=== PATIENT | female | born 1980 | race Caucasian/White ===

== ENCOUNTER 2016-11-29 20:17 | Emergency (ER) | payer OTHER ==
[2016-11-29 20:40] VITALS: RESP 22; TEMP 97.8
[2016-11-29] MEDS ORDERED: SODIUM CHLORIDE 0.9% 1000ML 1,000 ML IV ONE (20:45)
[2016-11-29] MEDS: ONDANSETRON HCL 4 MG/2 ML 4 MG in SODIUM CHLORIDE 0.9% 100 ML 100 ML IV ONE ×2 (20:45→20:50)
[2016-11-29] MEDS ORDERED: KETOROLAC TROMETHAMINE 30 MG/ML SOL IV ONE (20:45)
[2016-11-29] MEDS ORDERED: ONDANSETRON HCL 4 MG/2 ML SOL IV ONE (20:50)
[2016-11-29] MEDS ORDERED: ONDANSETRON HCL 4 MG/2 ML SOL ONE (20:52)
[2016-11-29] MEDS ORDERED: KETOROLAC TROMETHAMINE 30 MG/ML SOL ONE (20:52)
[2016-11-29] MEDS ORDERED: PROMETHAZINE HYDROCHLORIDE 25 MG/ML SOL IV ONE (22:04)
[2016-11-29] MEDS ORDERED: PROCHLORPERAZINE EDISYLATE 5 MG/ML SOL IV ONE (22:04)
[2016-11-29] MEDS ORDERED: PROCHLORPERAZINE EDISYLATE 5 MG/ML SOL ONE (22:14)
[2016-11-29] MEDS ORDERED: PROMETHAZINE HYDROCHLORIDE 25 MG/ML SOL ONE (22:15)
[2016-11-29] MEDS ORDERED: SODIUM CHLORIDE 0.9% FLUSH 10 ML SOL IV PRN (22:21)
[2016-11-29 22:38] VITALS: BP 119/83; PULSE 78; O2SAT 97
== END 2016-11-29 22:34 | disposition home or self-care (01) | DRG 103 ==
LOC: ED 20:17
DX: R51 Headache (principal)
CPT/HCPCS: 96365; 96374; 96375; 99284; J0780; J1885; J2405; J2550

== ENCOUNTER 2018-11-04 18:18 | Emergency (ER) | payer OTHER ==
[2018-11-04 18:33] VITALS: RESP 20; TEMP 97.8
[2018-11-04] MEDS ORDERED: LORAZEPAM 2 MG/ML SOL IV ONE (18:56)
[2018-11-04] MEDS ORDERED: PROCHLORPERAZINE EDISYLATE 5 MG/ML SOL IV ONE (18:56)
[2018-11-04] MEDS ORDERED: KETOROLAC TROMETHAMINE 30 MG/ML SOL IV ONE (18:56)
[2018-11-04] MEDS ORDERED: SODIUM CHLORIDE 0.9% 1000ML 1,000 ML IV ONE (18:56)
[2018-11-04] MEDS ORDERED: KETOROLAC TROMETHAMINE 30 MG/ML SOL ONE (19:15)
[2018-11-04] MEDS ORDERED: PROCHLORPERAZINE EDISYLATE 5 MG/ML SOL ONE (19:16)
[2018-11-04] MEDS ORDERED: LORAZEPAM 2 MG/ML SOL ONE (19:16)
[2018-11-04] MEDS ORDERED: SODIUM CHLORIDE 0.9% FLUSH 10 ML SOL IV PRN (19:35)
[2018-11-04 20:38] VITALS: BP 92/53; PULSE 61; O2SAT 95
== END 2018-11-04 20:33 | disposition home or self-care (01) | DRG 103 ==
LOC: ED 18:18
DX: G43.909 Migraine, unspecified, not intractable, without status migrainosus (principal)
CPT/HCPCS: 96365; 96374; 96375; 99282; 99285; J0780; J1885; J2060